=== PATIENT | female | born 1985 | race Caucasian/White ===

== ENCOUNTER 2021-08-20 18:26 | Emergency (ER) | payer OTHER ==
[2021-08-20] MEDS ORDERED: Ondansetron 4 MG Tab.DIS PO ONE (19:11)
[2021-08-20 19:47] LABS: ESTIMATED GFR 98 mL/min (>60)
[2021-08-20] MEDS ORDERED: Metoclopramide 10 MG/2 ML SDV IVPUSH ONE (20:13)
[2021-08-20] MEDS ORDERED: Acetaminophen 1,000 MG in Premix Bag 1 BAG IV ONE (20:14)
[2021-08-20] MEDS ORDERED: Dexamethasone 4 MG/ML SDV IVPUSH ONE (20:15)
[2021-08-20] MEDS ORDERED: levETIRAcetam in NaCl (iso-os) 1,000 MG in Premix Bag 1 BAG IV ONE ×2 (20:30)
[2021-08-20] MEDS ORDERED: Morphine 2 MG/ML SYRINGE IVPUSH ONE (20:51)
[2021-08-20] MEDS ORDERED: niCARdipine HCl 25 MG in Sodium Chloride 0.9% 240 ML IV SCH (21:00)
== END 2021-08-20 21:36 ==
LOC: JP.ED 18:26
DX: I60.9 Nontraumatic subarachnoid hemorrhage, unspecified (principal); G44.53 Primary thunderclap headache; Z79.899 Other long term (current) drug therapy; Z20.822 Contact with and (suspected) exposure to COVID-19
CPT/HCPCS: 36415; 70450; 80048; 85025; 85610; 85651; 85730; 86140; 87635; 96365; 96375; 99285; J0131; J1953; J2765; Q0162; U0002